=== PATIENT | female | born 1970 | race Caucasian/White ===

== ENCOUNTER 2018-05-27 13:39 | Inpatient (IN) | payer OTHER, SELFPAY ==
--- NOTE | 2018-05-27 | DI.MRI.S_ITS ---
PROCEDURE: MR LUMBAR SPINE WO/W CON INDICATIONS: ataxia, T8 sensory loss, UE weakness, r/o transverse myeliti TECHNIQUE: Noncontrast sagittal T1 spin echo and T2 fast spin echo, sagittal STIR, axial T1 and T2 fast spin echo through the lumbar spine. In cases with scoliosis, additional coronal T2 fast spin echo may be performed. After the administration of contrast, sagittal and axial T1 spin echo with fat saturation through the lumbar spine. COMPARISON: None. FINDINGS: Image quality: Excellent. Alignment and curvature: There is normal bony alignment. Marrow: Marrow is of normal overall signal. No acute vertebral body compression fractures. No suspicious marrow enhancement. Spinal cord: Conus medullaris terminates at the L1 level. Visualized spinal cord demonstrates normal signal, without suspicious enhancement. Paraspinous soft tissues: No paravertebral masses or abnormal enhancement. L1-L2: Normal appearance. L2-L3: Loss of disc signal. Minimal, diffuse disc bulge. No central stenosis. Mild right neural foraminal narrowing. No neural impingement. L3-L4: Loss of disc signal. Mild, diffuse disc bulge. Mild bilateral facet hypertrophy. No central stenosis. Mild bilateral neural foraminal narrowing. No neural impingement. L4-L5: Loss of disc signal. Mild, diffuse disc bulge. Mild bilateral facet hypertrophy. No central stenosis. Mild bilateral neural foraminal narrowing. No neural impingement. L5-S1: Disc has a normal appearance. Moderate bilateral facet hypertrophy. No central stenosis. No neural foraminal narrowing. No neural impingement. IMPRESSION: 1. Multilevel degenerative disc disease. 2. Multilevel facet arthropathy. 3. No central stenosis. 4. Mild right L2-L3 neural foraminal narrowing. Mild bilateral L3-L4 and L4-L5 neural foraminal narrowing. 5. No neural impingement. 6. No abnormal spinal cord signal or suspicious postcontrast enhancement. Dictated by: Luda Albert MD, PhD on 05/28/2018 at 15:43 Approved by: Luda Albert MD, PhD on 05/28/2018 at 15:48
--- NOTE | 2018-05-27 | DI.MRI.S_ITS ---
PROCEDURE: MR THORACIC SPINE WO/W CON INDICATIONS: ataxia, T8 sensory loss, UE weakness, r/o transverse myeliti TECHNIQUE: Noncontrast sagittal T1 spin echo and T2 fast spin echo, sagittal STIR, axial T1 and T2 fast spin echo through the thoracic spine. After the administration of contrast, axial and sagittal T1 spin echo with fat saturation through the thoracic spine. COMPARISON: None. FINDINGS: Image quality: Limited by patient motion. Alignment and curvature: There is normal bony alignment. Marrow: Marrow is of normal overall signal. No acute vertebral body compression fractures. Spinal cord: Visualized spinal cord is of normal signal and size, without abnormal enhancement. Paraspinous soft tissues: No paravertebral masses or abnormal enhancement. Miscellaneous: Mild multilevel degenerative changes. Central canal and foramina appear widely patent at all scanned levels. IMPRESSION: 1. Mild multilevel degenerative disc disease. 2. No central stenosis. 3. No neural foraminal narrowing. 4. No neural impingement. 5. No abnormal spinal cord signal or suspicious postcontrast enhancement. Dictated by: Luda Albert MD, PhD on 05/28/2018 at 15:40 Approved by: Luda Albert MD, PhD on 05/28/2018 at 15:42
--- NOTE | 2018-05-27 | DI.MRI.S_ITS ---
PROCEDURE: MR HEAD/BRAIN WO/W CON INDICATIONS: ataxia, T8 sensory loss, UE weakness, r/o MS TECHNIQUE: Noncontrast axial T1 spin echo, axial T2 fast spin echo, sagittal and axial FLAIR, coronal T2 fast spin echo, axial gradient echo, axial diffusion and ADC through the brain. After the administration of contrast, axial and coronal 3D VIBE or T1 spin echo with fat saturation through the brain. COMPARISON: None. FINDINGS: Image quality: Excellent. CSF Spaces: Basal cisterns are patent. No extra-axial fluid collections. Ventricles are normal in size and shape. Brain: No midline shift. No intracranial bleeds or masses. No abnormal intracranial enhancement. The brainstem appears normal. Diffusion-weighted images demonstrate no acute ischemic insults. No chronic ischemic insults. Normal intravascular flow voids are present. Skull and face: Calvarial marrow is normal in signal. Orbits appear normal. Sinuses: Circumferential mucosal thickening noted in the left mastoid sinus. An air-fluid level is identified within the left mastoid sinus. There is a small mucous retention cyst within the left ethmoid air cells. IMPRESSION: #1. No acute intracranial abnormality. #2. No intracranial MRI findings consistent with multiple sclerosis. #3. Bilateral mastoid mucosal thickening and air-fluid level, a nonspecific finding that can be seen with sinusitis. Dictated by: Jordan Stockton M.D. on 05/28/2018 at 15:07 Approved by: Jordan Stockton M.D. on 05/28/2018 at 15:22
--- NOTE | 2018-05-27 | DI.CT.S_ITS ---
PROCEDURE: CT CHEST W CON INDICATIONS: lung nodule seen on xray TECHNIQUE: After the administration of intravenous contrast, 5 mm thick sections acquired from the pulmonary apices to the posterior costophrenic angles. 7 mm thick coronal and sagittal MIP reformats were acquired. For radiation dose reduction, the following was used: automated exposure control, adjustment of mA and/or kV according to patient size. COMPARISON: [facility], , XR CHEST 2V, 05/27/2018, 15:15. FINDINGS: Image quality: Excellent. Lungs and pleura: No right superhilar nodule identified to correlate with the findings on the chest x-ray. Within the right middle lobe anteriorly, there are a few small ground glass nodular opacities compatible with a mild infectious or inflammatory process. There is also mild atelectasis or scarring within the anterior right middle lobe and left lingula. The No pleural effusions or pneumothorax. Central and peripheral airways are patent and normal in caliber. Mediastinum: Heart size is normal. No pericardial effusion. No mediastinal or hilar adenopathy by size criteria. Thoracic aorta and central pulmonary arteries are normal in size. Esophagus is normal in caliber. No hiatal hernia. Bones and chest wall: No suspicious bony lesions. There is asymmetric sclerosis along the right costal margin sternal junction of the 1st rib likely representing degeneration. This appears to correspond to the opacity on recent x-ray. No vertebral body compression fractures. No axillary or supraclavicular adenopathy by size criteria. Thyroid gland demonstrates no discrete nodules. Abdomen: Visualized upper abdominal solid organs appear normal. Upper abdominal bowel loops are normal in caliber. IMPRESSION: 1. No right upper lobe superhilar nodule identified to correlate with the finding on x-ray. Findings likely correspond to sclerosis in the right anterior 1st rib at the costochondral junction. 2. Small nonspecific ground glass nodules anteriorly in the right middle lobe likely represent a mild infectious or inflammatory process. Dictated by: Bryce Cordon M.D. on 05/27/2018 at 21:45 Approved by: Bryce Cordon M.D. on 05/27/2018 at 21:48
--- NOTE | 2018-05-27 | DI.MRI.S_ITS ---
PROCEDURE: MR CERVICAL SPINE WO/W CON INDICATIONS: ataxia, T8 sensory loss, UE weakness, r/o transverse myelitis TECHNIQUE: Noncontrast sagittal T1 spin echo and T2 fast spin echo, sagittal STIR, foraminal oblique sagittal T2 fast spin echo, axial gradient echo or T2 fast spin echo through the cervical spine. After the administration of contrast, axial and sagittal T1 spin echo with fat saturation through the cervical spine. COMPARISON: None. FINDINGS: Image quality: Excellent. Alignment and curvature: There is normal bony alignment and curvature. Marrow: Reactive endplate change is noted adjacent to the C5-C6 and C6-C7 discs. No suspicious enhancement. Spinal cord: Subtle increased T2 signal noted in the spinal cord the level of the C5-C6 and C6-C7 discs compatible with cord edema likely related to severe central stenosis at these levels. No cerebellar tonsillar herniation. No abnormal intramedullary enhancement. Paraspinous soft tissues: No paravertebral masses or suspicious enhancement. C2-3: Loss of disc signal. No central stenosis. Mild left facet hypertrophy. No neural foraminal narrowing. No neural impingement. C3-4: Loss of the signal. Minimal, diffuse disc bulge. Mild to moderate right facet hypertrophy. Mild right uncovertebral joint hypertrophy. No central stenosis. Severe right neural foraminal narrowing with flattening deformity the exiting right C4 nerve root. C4-5: Loss of disc signal. Minimal, diffuse disc bulge. No central stenosis. No neural foraminal narrowing. No neural impingement. C5-6: Loss of disc signal and height. Moderate, diffuse disc bulge. Mild bilateral facet hypertrophy. Moderate right and mild left uncovertebral joint hypertrophy. Severe central stenosis secondary to disc disease with marked flattening deformity of the cervical spinal cord. Severe right and moderate left neural foraminal narrowing with flattening deformity exiting right C6 nerve root. C6-7: Loss of disc signal and height. Moderate, diffuse disc bulge. Mild bilateral facet and uncovertebral joint hypertrophy. Severe central stenosis secondary to disc disease with marked flattening deformity of the cervical spinal cord. Moderate right and severe left neural foraminal narrowing with flattening deformity exiting left C7 nerve root. C7-T1: Normal appearance. IMPRESSION: 1. Multilevel degenerative disc disease. 2. Multilevel facet and uncovertebral joint hypertrophy. 3. Severe C5-C6 and C6-C7 central canal stenosis with marked flattening deformity of the cervical spinal cord. There is mild, focal, it increased T2 signal in the spinal cord levels of the severe stenosis compatible with cord edema. 4. Severe right C3-C4 neural foraminal narrowing. Severe right and moderate left C5-C6 neural foraminal narrowing. Moderate right and severe left C6 and C7 neural foraminal narrowing. 5. No or abnormal spinal cord postcontrast enhancement. Dictated by: Luda Albert MD, PhD on 05/28/2018 at 15:11 Approved by: Luda Albert MD, PhD on 05/28/2018 at 15:19
[2018-05-27 13:44] VITALS: BP 175/106; PULSE 86; RESP 18; TEMP 36.4; O2SAT 100; BMI 27.5
--- NOTE | 2018-05-27 15:31 | DI.RAD.S_ITS ---
PROCEDURE: XR CHEST 2V INDICATIONS: new onset weakness TECHNIQUE: 2 views of the chest were acquired. COMPARISON: None. FINDINGS: Surgical changes and devices: None. Lungs and pleura: No pleural effusions or pneumothorax. Lungs are clear. There is increased density over the right first anterior rib inferiorly, likely superimposed bone and vessel. Mediastinum: Mediastinal contours are normal. Heart size is normal. Bones and chest wall: No suspicious bony abnormalities. Soft tissues appear unremarkable. IMPRESSION: No acute cardiopulmonary abnormality. Possibility of right upper lobe lesion cannot be totally excluded and short interval follow up exam is recommended. Dictated by: Richie Mcpherson M.D. on 05/27/2018 at 15:58 Approved by: Richie Mcpherson M.D. on 05/27/2018 at 16:00
[2018-05-27 15:48] LABS: Alanine Aminotransferase 65 IU/L (9-52); Albumin 4.9 g/dL (3.5-5.0); Albumin Globulin Ratio 1.4 (1.0-2.8); Alkaline Phosphatase 111 U/L (38-126); Aspartate Aminotransferase 49 IU/L (14-36); BUN Creatinine Ratio 16.7 (6-22); Bilirubin Total 0.5 mg/dL (0.2-1.3); Blood Urea Nitrogen 15 mg/dL (7-17); Carbon Dioxide 29 mmol/L (22-32); Chloride 100 mmol/L (98-107); Estimated Glomerular Filt Rate > 60.0 mL/min (>60); Globulin 3.5 g/dL (1.7-4.1); Glucose 112 mg/dL (70-100); HEMOLYSIS 18 (0-50); Magnesium 2.3 mg/dL (1.6-2.3); Phosphorous 3.6 mg/dL (2.5-4.5); Potassium 4.3 mmol/L (3.4-5.1); Sodium 140 mmol/L (137-145); Total Protein 8.4 g/dL (6.3-8.2)
[2018-05-27 15:58] LABS: Add Manual Diff / Slide Review NO; Basophils Percent Auto 0.7 % (0-2); Eosinophils Percent Auto 0.6 % (2-4); Hemoglobin 16.7 g/dL (12.0-16.0); Lymphocytes Percent Auto 17.9 % (25-40); Mean Corpuscular HGB Conc 34.1 % (30-36); Mean Corpuscular Hemoglobin 35.2 PG (26-34); Mean Corpuscular Volume 103.1 fL (80-100); Neutrophils Absolute Auto 9300 /uL (3000-5900); Neutrophils Percent Auto 76.8 % (50-75); Platelet Count 282 X10^3/uL (150-400); Red Blood Cell Count 4.75 X10^6/uL (4.0-5.2); White Blood Cell Count 12.1 X10^3/uL (4.5-11.0)
--- NOTE | 2018-05-27 16:07 | PC.NURSE ---
High activity / exercising pt w/ history of asthma currently on steroid taper. Noticed lower extremity tingling / numbness after flu like illness in Oct. Resolved 90% per pt report. Had another viral illness 2 weeks ago causing asthma exacerbation. Developed ascending numbness w/ weakness, difficulty walking, hyper reflexes in lower extremities. A/O x 3. Denies pain. Has been compensating. Denies headache, trauma, urinary/bowel retention or incontinence.
[2018-05-27 16:34] LABS: Thyroid Stimulating Hormone 1.65 uIU/mL (0.47-4.68)
[2018-05-27 16:43] LABS: Creatine Kinase 100 U/L (30-135)
[2018-05-27 17:08] LABS: Pregnancy Test Serum,Qual Negative (Negative)
--- NOTE | 2018-05-27 18:22 | ED.NEUROSD ---
HPI - Neuro Symptoms/Deficit General Chief Complaint: Neuro Symptoms/Deficit Stated Complaint: numb from abdomen down, trouble walking History of Present Illness HPI Narrative: HPI 47-year-old female presents for evaluation of gradually progressive bilateral lower extremity weakness, gait impairment, and subjective numb paresthesias that are progressing to her upper abdomen. Patient reports that last October she had an upper respiratory infectious episodes lasting proximally 10 days with fevers and chills and generally consistent with influenza, this cleared without requiring medical intervention, but the patient had mild numbness of her bilateral lower extremities which gradually had near complete resolution and only mild residual abnormal numb sensation in the first 2-4 toes of her left foot. Roughly 7-10 days ago she had another viral URI type infection, following the onset of this infection she began experiencing her presenting symptoms. The patient was also seen by her PCP and prescribed steroids in the course of her treatment. M/S/F/SocHx notable for: please see HPI; remainder reviewed with patient and in chart. ROS: Negative constitutional, eye, cardiovascular, pulmonary, GI, , MSK, skin, neurologic, psychiatric, endocrine unless noted in the HPI. Exam Gen: Pleasant, non-toxic appearing, resting comfortably. HEENT: NC, AT, PEERL, EOMI. Resp: Clear to auscultation bilaterally, normal work of breathing, no accessory muscle usage. Card: Regular rate and rhythm with no murmurs, rubs, or gallops, extremities warm and well perfused. GI: nondistended, nontender. : No suprapubic tenderness to palpation. MSK: No visible deformities, strength and tone without visually appreciable deficit. Bilateral lower extremities visually normal, warm and well perfused, no palpable abnormalities, 2+ DP pulses bilaterally. Skin: Normal color with no visible lesions. Neuro: AO x 3, no facial asymmetry, vision and hearing WNL. * Gait - patient with unsteady, broad-based, mildly staggering but non-ataxic gait. Able to stand on heels and toes with near full strength bilaterally. * reflexes - markedly hyperreflexia patellar reflexes bilaterally. * Romberg - patient able to stand with with both feet together and eyes closed with minimal swaying. * Sensory - sensation grossly intact to touch and symmetric on the bilateral lower extremities. Psych: Mood and affect appropriate. Labs / Imaging: WBC 12.1, HB 16.7, sodium 140, potassium 4.3, AST 49, ALT 65, free T4 1.40, magnesium 2.3, phosphorus 3.6, TSH 1.65, CK 100 CXR: no acute cardiopulmonary abnormality. Possibility of a right upper lobe lesion cannot be totally excluded in short interval follow-up exam is recommended. MDM Previous chart, nursing note, labs, imaging, and vitals reviewed. A: 47-year-old female presents for evaluation of gradually progressive bilateral lower extremity weakness, gait impairment, and subjective numb paresthesias that are progressing to her upper abdomen. DDx: electrolyte abnormalities, thyroid abnormalities, myositis, Guillain-Kuhn? syndrome, transverse myelitis, tick paralysis, polymyositis, dermatomyositis, ALS, multiple sclerosis Evaluation: initial laboratory studies unremarkable. Consider most likely on the differential is transverse myelitis and MS. Discussed case with the neurologist, MRI with contrast of Braen, C, and thoracic spine recommended as well as the addition of B12. These were ordered. Patient knitted for observation pending completion of evaluation in the morning. Impression: weakness (please reference below for remainder of encounter information) On Anticoagulants: No Related Data Home Medications Medication Instructions Recorded Confirmed albuterol sulfate [Ventolin HFA] 1 puff INH Q4HP PRN 05/27/18 05/27/18 azithromycin 250 mg PO DAILY 05/27/18 05/27/18 Previous Rx's Medication Instructions Recorded prednisone 20 mg PO SEE INSTRUCTIONS #6 tab 03/19/17 albuterol sulfate 3 ml INH X1 #1 box 03/22/17 beclomethasone dipropionate [Qvar] 1 puff INH BID #1 inh 03/27/17 Allergies Allergy/AdvReac Type Severity Reaction Status Date / Time codeine [CODEINE] Allergy Intermediate night Verified 05/27/18 13:48 terrors [facility] Social History Smoking Status: Former smoker Exam Initial Vital Signs Initial Vital Signs: Vital Signs Temperature 97.6 F 05/27/18 13:44 Pulse Rate 86 05/27/18 13:44 Respiratory Rate 18 05/27/18 13:44 Blood Pressure 175/106 H 05/27/18 13:44 Pulse Oximetry 100 05/27/18 13:44 Course Orders Ordered: ED Orders 05/27/18 15:20 Complete Blood Count AUTO DIFF Stat Comprehensive Metabolic Panel Stat Free T4 Free Thyroxine Stat Magnesium Stat Phosphorous Stat Thyroid Stimulating Hormone Stat 05/27/18 15:31 XR chest 2V Stat 05/27/18 18:14 MR brain (IAC) wwo con Stat MR cervical spine w con Stat MR lumbar spine w con Stat MR thoracic spine w con Stat 05/27/18 18:19 Vitamin B12 Stat Vital Signs - 8 hr 05/27/18 13:44 Temperature 97.6 F Pulse Rate 86 Respiratory Rate 18 Blood Pressure 175/106 H Pulse Oximetry 100 MDM - Neuro Symptoms/Deficit Lab Data Result diagrams: 05/27/18 15:20 05/27/18 15:20 Lab Results 05/27/18 05/27/18 05/27/18 Range/Units 15:20 15:20 15:20 WBC 12.1 H (4.5-11.0) X10^3/uL RBC 4.75 (4.0-5.2) X10^6/uL Hgb 16.7 H (12.0-16.0) g/dL Hct 49.0 H (36-46) % MCV 103.1 H (80-100) fL MCH 35.2 H (26-34) PG MCHC 34.1 (30-36) % RDW 13.0 (11.6-14.8) % Plt Count 282 (150-400) X10^3/uL Neut % (Auto) 76.8 H (50-75) % Lymph % (Auto) 17.9 L (25-40) % Kenton % (Auto) 4.0 (3-14) % Eos % (Auto) 0.6 L (2-4) % Baso % (Auto) 0.7 (0-2) % Neut # (Auto) 9300 H (0414-3617) /uL Sodium (137-145) mmol/L Potassium (3.4-5.1) mmol/L Chloride (98-107) mmol/L Carbon Dioxide (22-32) mmol/L BUN (7-17) mg/dL Creatinine (0.52-1.04) mg/dL Estimated GFR (>60) mL/min BUN/Creatinine Ratio (6-22) Glucose (70-100) mg/dL Calcium (8.4-10.2) mg/dL Phosphorus Cancelled Magnesium (1.6-2.3) mg/dL Total Bilirubin (0.2-1.3) mg/dL AST (14-36) IU/L ALT (9-52) IU/L Alkaline Phosphatase (38-126) U/L Total Creatine Kinase (30-135) U/L Total Protein (6.3-8.2) g/dL Albumin (3.5-5.0) g/dL Globulin (1.7-4.1) g/dL Albumin/Globulin Ratio (1.0-2.8) TSH 1.65 (0.47-4.68) uIU/mL Free T4 1.40 (0.78-2.19) ng/dL Serum , Qual (Negative) 05/27/18 05/27/18 05/27/18 Range/Units 15:20 Unknown Unknown WBC (4.5-11.0) X10^3/uL RBC (4.0-5.2) X10^6/uL Hgb (12.0-16.0) g/dL Hct (36-46) % MCV (80-100) fL MCH (26-34) PG MCHC (30-36) % RDW (11.6-14.8) % Plt Count (150-400) X10^3/uL Neut % (Auto) (50-75) % Lymph % (Auto) (25-40) % Kenton % (Auto) (3-14) % Eos % (Auto) (2-4) % Baso % (Auto) (0-2) % Neut # (Auto) (4808-8830) /uL Sodium 140 (137-145) mmol/L Potassium 4.3 (3.4-5.1) mmol/L Chloride 100 (98-107) mmol/L Carbon Dioxide 29 (22-32) mmol/L BUN 15 (7-17) mg/dL Creatinine 0.90 (0.52-1.04) mg/dL Estimated GFR > 60.0 (>60) mL/min BUN/Creatinine Ratio 16.7 (6-22) Glucose 112 H (70-100) mg/dL Calcium 10.0 (8.4-10.2) mg/dL Phosphorus 3.6 Magnesium 2.3 (1.6-2.3) mg/dL Total Bilirubin 0.5 (0.2-1.3) mg/dL AST 49 H (14-36) IU/L ALT 65 H (9-52) IU/L Alkaline Phosphatase 111 (38-126) U/L Total Creatine Kinase 100 (30-135) U/L Total Protein 8.4 H (6.3-8.2) g/dL Albumin 4.9 (3.5-5.0) g/dL Globulin 3.5 (1.7-4.1) g/dL Albumin/Globulin Ratio 1.4 (1.0-2.8) TSH (0.47-4.68) uIU/mL Free T4 (0.78-2.19) ng/dL Serum , Qual Negative (Negative) Discharge Plan Departure Prescriptions: No Action prednisone 20 MG tablet 20 mg PO SEE INSTRUCTIONS Qty: 6 RF: 0 albuterol sulfate 2.5 MG/3 ML solution for nebulization 3 ml INH X1 Qty: 1 RF: 3 beclomethasone dipropionate [Qvar] 80 MCG/PUFF aerosol 1 puff INH BID Qty: 1 RF: 2 azithromycin 250 mg Tablet 250 mg PO DAILY RF: 0 albuterol sulfate [Ventolin HFA] 90 MCG/PUFF HFA aerosol inhaler 1 puff INH Q4HP PRN (Reason: Shortness Of Breath) RF: 0
[2018-05-27 19:50] VITALS: BP 157/99; PULSE 79; RESP 20; TEMP 37.1; O2SAT 98
--- NOTE | 2018-05-27 20:00 | PM.HP.1 ---
History of Present Illness Date Patient Seen: 05/27/18 Time Patient Seen: 20:01 Chief complaint: numb from abdomen down, trouble walking Narrative: Patient is a 47-year-old female with history of asthma but generally good health presents to emergency department with complaints of numbness from the abdomen down and trouble walking. Patient states she developed an upper respiratory infection about 2 weeks ago. She saw her medical provider and got started on prednisone and Z-Flex. Her cough is improving. However around time of onset of respiratory symptoms she developed difficulty walking and symmetric numbness in the legs extending to the upper abdomen. At about same time or soon after she noticed weakness in both arms but without numbness. She thinks that maybe her left eye vision also deteriorated but not completely sure about the vision change. She denies headache, diplopia, facial numbness. She denies falling. Denies any urinary symptoms such as urgency, difficulty emptying bladder or incontinence or any problems with constipation. 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 She also saw chiropractor recently for acute pain in the thoracic spine area. She states that pain has gotten much better. Patient recalls incident last year during when she had the flu and subsequently lost sensation in all 4 extremities. Symptoms resolved on their own except for persistent numbness in the left big toe and 2nd toe which did not resolve. Patient History Medical History Asthma (Chronic) Family & Social History Safety & Behavioral: Feels Safe in Current Yes Environment Been Physically Hurt or No Threatened By a Person Tobacco & Substance use: Smoking Status Former smoker alcohol intake frequency 0-2 drinks per day Substance Use Type marijuana Meds Home Medications Medication Instructions Recorded Confirmed Type prednisone 20 mg PO SEE INSTRUCTIONS #6 tab 03/19/17 05/27/18 Rx albuterol sulfate 3 ml INH X1 #1 box 03/22/17 05/27/18 Rx beclomethasone dipropionate [Qvar] 1 puff INH BID #1 inh 03/27/17 05/27/18 Rx albuterol sulfate [Ventolin HFA] 1 puff INH Q4HP PRN 05/27/18 05/27/18 History azithromycin 250 mg PO DAILY 05/27/18 05/27/18 History Allergies Allergy/AdvReac Type Severity Reaction Status Date / Time codeine [CODEINE] Allergy Intermediate night Verified 05/27/18 13:48 terrors Review of Systems Review of Systems All systems reviewed & are unremarkable except as noted in HPI and below Exam Vital Signs (past 8 hours): - 05/27/18 13:44 Temperature 97.6 F Pulse Rate 86 Respiratory Rate 18 Blood Pressure 175/106 H Pulse Oximetry 100 Oxygen Delivery Method Room Air Narrative Exam Narrative: GENERAL: This is an alert well-nourished, well-developed patient, who is cooperative with exam HEAD: Atraumatic. Normocephalic. EYES: Pupils equal, round and reactive. Extraocular motions intact. No nystagmus. OROPHARYNX: moist mucosa NECK: Trachea midline. No JVD or lymphadenopathy. CARDIOVASCULAR: Regular rate and rhythm without murmurs, gallops, or rubs. RESPIRATORY: Breathing is nonlabored. Clear to auscultation bilaterally. GASTROINTESTINAL: Abdomen nondistended, soft, non-tender. No hepato-splenomegaly, or palpable masses. EXTREMITIES: No edema. NEUROLOGICAL: Alert, oriented x 3, speech is intact, there is bilateral symmetric sensory loss to T8 level, deep tendon reflexes are hyper reflexive in arms, knees and ankles. Upper extremity proximal and distal strength intact although patient has subjective weakness and states she would not be able to hold a bowling ball. Bilateral lower extremity strength 5/5 although patient is ataxic with ambulation. SKIN: warm, dry, no rash Objective Labs Result Diagrams: 05/27/18 15:20 05/27/18 15:20 Labs: Chest two view:PROCEDURE: XR CHEST 2V INDICATIONS: new onset weakness TECHNIQUE: 2 views of the chest were acquired. COMPARISON: None. FINDINGS: Surgical changes and devices: None. Lungs and pleura: No pleural effusions or pneumothorax. Lungs are clear. There is increased density over the right first anterior rib inferiorly, likely superimposed bone and vessel. Mediastinum: Mediastinal contours are normal. Heart size is normal. Bones and chest wall: No suspicious bony abnormalities. Soft tissues appear unremarkable. IMPRESSION: No acute cardiopulmonary abnormality. Possibility of right upper lobe lesion cannot be totally excluded and short interval follow up exam is recommended. Dictated by: Richie Mcpherson M.D. on 05/27/2018 at 15:58 Approved by: Richie Mcpherson M.D. on 05/27/2018 at 16:00 Laboratory Results - last 24 hr 05/27/18 05/27/1805/27/18 15:20 15:20 15:20 WBC 12.1 H RBC 4.75 Hgb 16.7 H Hct 49.0 H MCV 103.1 H MCH 35.2 H MCHC 34.1 RDW 13.0 Plt Count 282 Neut % (Auto) 76.8 H Lymph % (Auto) 17.9 L [place] % (Auto) 4.0 Eos % (Auto) 0.6 L Baso % (Auto) 0.7 Neut # (Auto) 9300 H Sodium Potassium Chloride Carbon Dioxide BUN Creatinine Estimated GFR BUN/Creatinine Ratio Glucose Calcium Phosphorus Cancelled Magnesium Total Bilirubin AST ALT Alkaline Phosphatase Total Creatine Kinase Total Protein Albumin Globulin Albumin/Globulin Ratio TSH 1.65 Free T4 1.40 Serum , Qual 05/27/18 05/27/18 05/27/18 15:20 Unknown Unknown WBC RBC Hgb Hct MCV MCH MCHC RDW Plt Count Neut % (Auto) Lymph % (Auto) [place] % (Auto) Eos % (Auto) Baso % (Auto) Neut # (Auto) Sodium 140 Potassium 4.3 Chloride 100 Carbon Dioxide 29 BUN 15 Creatinine 0.90 Estimated GFR > 60.0 BUN/Creatinine Ratio 16.7 Glucose 112 H Calcium 10.0 Phosphorus 3.6 Magnesium 2.3 Total Bilirubin 0.5 AST 49 H ALT 65 H Alkaline Phosphatase 111 Total Creatine Kinase 100 Total Protein 8.4 H Albumin 4.9 Globulin 3.5 Albumin/Globulin Ratio 1.4 TSH Free T4 Serum , Qual Negative Assessment & Plan Plan: Assessment/Plan Narrative: 1. Acute ataxia with T8 sensory loss and subjective weakness of upper extremities. Symptom onset was 2 weeks ago after onset of URI. She is hyper-reflexive on exam with ataxic gait. She had similar symptoms around [place] last year which were largely resolved on their own. 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 She has ascending pattern of numbness although hyper reflexia would argue against Guillain-[place] syndrome. She is not having fevers to suggest infectious causes. Mildly elevated WBC more likely due to prednisone. She needs MRI imaging which unfortunately could not be done tonight due to lack of sprinkler repair technician availability. We have scheduled MRI for a.m.. Plan: Brain MRI with and without contrast, C-spine/thoracic/lumbar MRI with and without contrast. 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 2. Possible abnormal density right upper lung. Could be artifact. Order chest CT with contrast for further evaluation. 3. URI with recent asthma exacerbation. Lungs are clear on exam. Complete Zithromax 5 day course on a.m. of May 28. 4. Acute hypertension. Noted to have initial BP 175/106 subsequently improving. Continue monitoring.
[2018-05-27 20:07] LABS: Vitamin B12 935 pg/mL (239-931)
[2018-05-27 20:15] VITALS: BMI 27.1
--- NOTE | 2018-05-27 20:23 | P.HP_ITS ---
History of Present Illness Date Patient Seen: 05/27/18 Time Patient Seen: 20:01 Chief complaint: numb from abdomen down, trouble walking Narrative: Patient is a 47-year-old female with history of asthma but generally good health presents to emergency department with complaints of numbness from the abdomen down and trouble walking. Patient states she developed an upper respiratory infection about 2 weeks ago. She saw her medical provider and got started on prednisone and Z-Flex. Her cough is improving. However around time of onset of respiratory symptoms she developed difficulty walking and symmetric numbness in the legs extending to the upper abdomen. At about same time or soon after she noticed weakness in both arms but without numbness. She thinks that maybe her left eye vision also deteriorated but not completely sure about the vision change. She denies headache, diplopia, facial numbness. She denies falling. Denies any urinary symptoms such as urgency, difficulty emptying bladder or incontinence or any problems with constipation. 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 She also saw chiropractor recently for acute pain in the thoracic spine area. She states that pain has gotten much better. Patient recalls incident last year during when she had the flu and subsequently lost sensation in all 4 extremities. Symptoms resolved on their own except for persistent numbness in the left big toe and 2nd toe which did not resolve. Patient History Medical History Asthma (Chronic) Family & Social History Safety & Behavioral: Feels Safe in Current Yes Environment Been Physically Hurt or No Threatened By a Person Tobacco & Substance use: Smoking Status Former smoker alcohol intake frequency 0-2 drinks per day Substance Use Type marijuana Meds Home Medications Medication Instructions Recorded Confirmed Type prednisone 20 mg PO SEE INSTRUCTIONS #6 tab 03/19/17 05/27/18 Rx albuterol sulfate 3 ml INH X1 #1 box 03/22/17 05/27/18 Rx beclomethasone dipropionate [Qvar] 1 puff INH BID #1 inh 03/27/17 05/27/18 Rx albuterol sulfate [Ventolin HFA] 1 puff INH Q4HP PRN 05/27/18 05/27/18 History azithromycin 250 mg PO DAILY 05/27/18 05/27/18 History Allergies Allergy/AdvReac Type Severity Reaction Status Date / Time codeine [CODEINE] Allergy Intermediate night Verified 05/27/18 13:48 terrors Review of Systems Review of Systems All systems reviewed & are unremarkable except as noted in HPI and below Exam Vital Signs (past 8 hours): - 05/27/18 13:44 Temperature 97.6 F Pulse Rate 86 Respiratory Rate 18 Blood Pressure 175/106 H Pulse Oximetry 100 Oxygen Delivery Method Room Air Narrative Exam Narrative: GENERAL: This is an alert well-nourished, well-developed patient , who is cooperative with exam HEAD: Atraumatic. Normocephalic. EYES: Pupils equal, round and reactive. Extraocular motions intact. No nystagmus. OROPHARYNX: moist mucosa NECK: Trachea midline. No JVD or lymphadenopathy. CARDIOVASCULAR: Regular rate and rhythm without murmurs, gallops, or rubs. RESPIRATORY: Breathing is nonlabored. Clear to auscultation bilaterally. GASTROINTESTINAL: Abdomen nondistended, soft, non-tender. No hepato- splenomegaly, or palpable masses. EXTREMITIES: No edema. NEUROLOGICAL: Alert, oriented x 3, speech is intact, there is bilateral symmetric sensory loss to T8 level, deep tendon reflexes are hyper reflexive in arms, knees and ankles. Upper extremity proximal and distal strength intact although patient has subjective weakness and states she would not be able to hold a bowling ball. Bilateral lower extremity strength 5/5 although patient is ataxic with ambulation. SKIN: warm, dry, no rash Objective Labs Result Diagrams: 05/27/18 15:20 05/27/18 15:20 Labs: Chest two view:PROCEDURE: XR CHEST 2V INDICATIONS: new onset weakness TECHNIQUE: 2 views of the chest were acquired. COMPARISON: None. FINDINGS: Surgical changes and devices: None. Lungs and pleura: No pleural effusions or pneumothorax. Lungs are clear. There is increased density over the right first anterior rib inferiorly, likely superimposed bone and vessel. Mediastinum: Mediastinal contours are normal. Heart size is normal. Bones and chest wall: No suspicious bony abnormalities. Soft tissues appear unremarkable. IMPRESSION: No acute cardiopulmonary abnormality. Possibility of right upper lobe lesion cannot be totally excluded and short interval follow up exam is recommended. Dictated by: Richie Mcpherson M.D. on 05/27/2018 at 15:58 Approved by: Richie Mcpherson M.D. on 05/27/2018 at 16:00 Laboratory Results - last 24 hr 05/27/18 05/27/1805/27/18 15:20 15:20 15:20 WBC 12.1 H RBC 4.75 Hgb 16.7 H Hct 49.0 H MCV 103.1 H MCH 35.2 H MCHC 34.1 RDW 13.0 Plt Count 282 Neut % (Auto) 76.8 H Lymph % (Auto) 17.9 L [place] % (Auto) 4.0 Eos % (Auto) 0.6 L Baso % (Auto) 0.7 Neut # (Auto) 9300 H Sodium Potassium Chloride Carbon Dioxide BUN Creatinine Estimated GFR BUN/Creatinine Ratio Glucose Calcium Phosphorus Cancelled Magnesium Total Bilirubin AST ALT Alkaline Phosphatase Total Creatine Kinase Total Protein Albumin Globulin Albumin/Globulin Ratio TSH 1.65 Free T4 1.40 Serum , Qual 05/27/18 05/27/18 05/27/18 15:20 Unknown Unknown WBC RBC Hgb Hct MCV MCH MCHC RDW Plt Count Neut % (Auto) Lymph % (Auto) [place] % (Auto) Eos % (Auto) Baso % (Auto) Neut # (Auto) Sodium 140 Potassium 4.3 Chloride 100 Carbon Dioxide 29 BUN 15 Creatinine 0.90 Estimated GFR > 60.0 BUN/Creatinine Ratio 16.7 Glucose 112 H Calcium 10.0 Phosphorus 3.6 Magnesium 2.3 Total Bilirubin 0.5 AST 49 H ALT 65 H Alkaline Phosphatase 111 Total Creatine Kinase 100 Total Protein 8.4 H Albumin 4.9 Globulin 3.5 Albumin/Globulin Ratio 1.4 TSH Free T4 Serum , Qual Negative Assessment & Plan Plan: Assessment/Plan Narrative: 1. Acute ataxia with T8 sensory loss and subjective weakness of upper extremities. Symptom onset was 2 weeks ago after onset of URI. She is hyper- reflexive on exam with ataxic gait. She had similar symptoms around [place] last year which were largely resolved on their own. Differential diagnosis includes DOORPERSON OR LUGGAGE PORTER or spinal cord autoimmune process such as multiple sclerosis or transverse myelitis, spinal cord compression due to tumor, vascular abnormality causes, and degenerative disease such as cervical myelopathy. She has ascending pattern of numbness although hyper reflexia would argue against Guillain-[place] syndrome. She is not having fevers to suggest infectious causes. Mildly elevated WBC more likely due to prednisone. She needs MRI imaging which unfortunately could not be done tonight due to lack of lube technician availability. We have scheduled MRI for a.m.. Plan: Brain MRI with and without contrast, C-spine/thoracic/lumbar MRI with and without contrast. Patient is claustrophobic and will get lorazepam dental professional to MR. 2. Possible abnormal density right upper lung. Could be artifact. Order chest CT with contrast for further evaluation. 3. URI with recent asthma exacerbation. Lungs are clear on exam. Complete Zithromax 5 day course on a.m. of May 28. 4. Acute hypertension. Noted to have initial BP 175/106 subsequently improving. Continue monitoring.
--- NOTE | 2018-05-27 21:37 | PC.NURSE ---
patient is a&ox4, denies pain, 98% on ra, denies nausea or dizziness. patient states she feels sob. patient demonstrates ability to ambulate from wheelchair to bed. patient denies need to void at this time, will reassess. patient oriented to room and call light use, encouraged not to get oob by herself. skin is intact. bowel tones present, heart rate regular. lung sounds are wheezy bilat, especially in bases, cough is productive with white frothy sputum. patient neuro assessed by this rn: sensation is stated to feel like they are someone else's legs, like she can feel this rn poking feet, legs, hips, abd and back, but sensation has decreased. no paresthesia, no paralysis, can wiggle toes. will continue to monitor.
[2018-05-27 21:42] VITALS: O2SAT 98
[2018-05-27 23:00] VITALS: O2SAT 99
[2018-05-28 00:11] VITALS: BP 147/94; PULSE 66; RESP 16; TEMP 36.7; O2SAT 99
[2018-05-28] MEDS: CYCLOBENZAPRINE 10 MG TABLET PO (01:13)
[2018-05-28 05:31] VITALS: BP 133/90; PULSE 70; RESP 16; TEMP 36.6; O2SAT 98
[2018-05-28] MEDS: IBUPROFEN 400 MG TABLET PO (06:47)
--- NOTE | 2018-05-28 06:48 | PC.NURSE ---
Pt is AxOx3 very pleasant 47yr old female. Complained of some muscle spasms keeping her up, flexeril ordered and given. Sharp pain also reported in upper back when coughing, Ibuprofen given. 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 Reports some numnbess on b/l lower extremities and up to her epigastric area.When further asked to explain she said she can feel when we touch her legs but it feels weird and she can feel the pressure but it feels more dull.
[2018-05-28 07:00] VITALS: O2SAT 98
[2018-05-28 08:00] VITALS: BP 128/92; PULSE 74; RESP 18; TEMP 36.6; O2SAT 98
[2018-05-28] MEDS: ACETAMINOPHEN 325 MG TABLET 650 MG PO (08:44)
[2018-05-28] MEDS: AZITHROMYCIN 250 MG TABLET PO (08:44)
--- NOTE | 2018-05-28 09:09 | CM.DANOTE ---
DCP: Case received, EMR reviewed and met with patient. Introduced self and role. DCP template completed with information currently available. Patient is a 47 year old female who admitted yesterday pm to the care of the hospitalist team. PCP: Dr. Marshall. Payer: confirmed: Deepika. Patient came in with symptoms of numbness from the abdomen down, as well as trouble walking. Had been treated recently for URI, and patient started developing these symptoms after that. Patient lives on [facility] with her . Is inpatient status at this time. DCP will continue to plan and assess, plan is for patient to go home if possible. Mildred Martinez RN/Car Icer
[2018-05-28] MEDS: LORazepam 2 MG/ML SYRINGE 1 MG IV (10:26)
--- NOTE | 2018-05-28 11:28 | PC.NURSE ---
Pt just down to MRI. Given Ativan prior to test. Friend in room.
[2018-05-28 12:00] VITALS: O2SAT 98
[2018-05-28] MEDS: predniSONE 10 MG TABLET PO (13:03)
--- NOTE | 2018-05-28 17:01 | PM.DS.1 ---
History of Present Illness Chief complaint: numb from abdomen down, trouble walking Narrative: Patient is a 47-year-old female with history of asthma but generally good health presents to emergency department with complaints of numbness from the abdomen down and trouble walking. Patient states she developed an upper respiratory infection about 2 weeks ago. She saw her medical provider and got started on prednisone and Z-Flex. Her cough is improving. However around time of onset of respiratory symptoms she developed difficulty walking and symmetric numbness in the legs extending to the upper abdomen. At about same time or soon after she noticed weakness in both arms but without numbness. She thinks that maybe her left eye vision also deteriorated but not completely sure about the vision change. She denies headache, diplopia, facial numbness. She denies falling. Denies any urinary symptoms such as urgency, difficulty emptying bladder or incontinence or any problems with constipation. 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 She also saw chiropractor recently for acute pain in the thoracic spine area. She states that pain has gotten much better. Patient recalls incident last year during when she had the flu and subsequently lost sensation in all 4 extremities. Symptoms resolved on their own except for persistent numbness in the left big toe and 2nd toe which did not resolve. Discharge Providers Date of admission: 05/27/18 19:05 Primary care physician: Dr. Jonathan MD Discharge provider: Danyell Lawler MD Discharge Date: 05/28/18 Summary Discharge Diagnosis: 1. Cervical spine spinal stenosis 2. Possible abnormal density in the right upper lung, could be artifact 3. Recent URI with asthma exacerbation 4. Acute hypertension Hospital Course: Patient was treated supportively. Cervical spine MRI revealed severe spinal stenosis at C5-6 and C6-7 with marked flattening deformity of the cervical spinal cord. There is signs of cord edema. There was also signs of neural foraminal stenosis at several levels. Brain MRI did not reveal any intracranial lesions that could be causing her symptoms. T-spine and L-spine MRI also did not reveal any significant abnormalities. She has been having chronic neck pain for quite a while. Her symptom could be from cervical spine spinal stenosis. She is currently on oral prednisone taper for asthma exacerbation. We are going to increase her prednisone dose to 40 mg daily. She needs outpatient neurosurgery consultation for for possible surgical intervention in the near future. I have recommended Dr. Molina in [place]. Status at Discharge Cognitive/behavioral status at discharge: Alert and oriented x3 Functional status at discharge: independent ambulation Overall status at discharge: patient is not back to baseline Time Spent with Patient Greater than 30 minutes Exam Vital Signs (past 8 hours): - 05/28/18 12:00 Pulse Oximetry 98 Oxygen Delivery Method Room Air Oxygen Flow Rate 0 Objective Imaging C-spine MRI: Radiologist's impression: 1. Multilevel degenerative disc disease. 2. Multilevel facet and uncovertebral joint hypertrophy. 3. Severe C5-C6 and C6-C7 central canal stenosis with marked flattening deformity of the cervical spinal cord. There is mild, focal, it increased T2 signal in the spinal cord levels of the severe stenosis compatible with cord edema. 4. Severe right C3-C4 neural foraminal narrowing. Severe right and moderate left C5-C6 neural foraminal narrowing. Moderate right and severe left C6 and C7 neural foraminal narrowing. 5. No or abnormal spinal cord postcontrast enhancement Labs Result Diagrams: 05/27/18 15:20 05/27/18 15:20 Labs: Laboratory Results - last 24 hr 05/27/18 05/27/18 16:00 Unknown Vitamin B12 935 H Serum , Qual Negative Discharge Plan Discharge Plan Discharge Problem: Abnormal gait Patient Disposition: Home, Self-Care Discharge comment: Follow-up with Neurosurgery as outpatient Provider Discharge Instructions Diet: Diet as Tolerated Discharge Data Primary Care Provider: Mayi Singleton Attending Provider: Tim Green Admit Date/Time: 05/27/18 19:05 Quality VTE Deep Vein Thrombosis/Pulmonary Embolism Present on Admission: No
--- NOTE | 2018-05-28 17:52 | PC.NURSE ---
1750- Pt IV discharge completed. A/O x4, LS clear, steady gait, able to ambulate indep. VSS, denies nausea, SOB, and pain. Pt has best friend here to accommodate back to [place].
== END 2018-05-28 17:49 | disposition home or self-care (01) | DRG 551 ==
LOC: ED 18:55 → AC 05-28 07:26
PROVIDERS: Admitting Provider Internal Medicine; Emergency Provider Emergency Medicine; PCP Family Medicine; Visit Provider Internal Medicine
DX: M48.02 Spinal stenosis, cervical region (principal); G95.19 Other vascular myelopathies; J45.901 Unspecified asthma with (acute) exacerbation; R27.8 Other lack of coordination; R20.8 Other disturbances of skin sensation; I10 Essential (primary) hypertension; Z87.891 Personal history of nicotine dependence; R91.8 Other nonspecific abnormal finding of lung field
CPT/HCPCS: 36591; 70553; 71046; 71260; 72156; 72157; 72158; 80053; 82550; 82607; 83735; 84100; 84439; 84443; 84703; 85025; 99282; 99285; 99291; A9579; J2060; Q9967

== ENCOUNTER 2019-08-19 21:24 | Emergency (ER) | payer OTHER, SELFPAY ==
[2019-08-19 21:44] VITALS: BP 162/101; PULSE 88; RESP 14; TEMP 36.8; O2SAT 99
--- NOTE | 2019-08-19 22:36 | ED.BACK ---
HPI - Back Pain/Injury General Chief Complaint: Back Pain/Injury Stated Complaint: BACK PAIN Time Seen by Provider: 08/19/19 22:30 Source: patient Limitations: no limitations History of Present Illness HPI Narrative: The patient is a 48-year-old female who presents with left-sided thoracic pain. It has been off and on for about a week. She says that she just got back from vacation she has had cough upper respiratory like symptoms and then 5 days ago she was exercising in march have overdone it. Tonight she twisted and it seemed to got worse. It is pinpoint in 1 area does hurt when she breathes coughs or sneezes. She denies any falling. She works in a [employer] all day. She took pain medication and muscle relaxant prior to arrival she says that has helped some. Complaint: back pain Onset (ago): day(s) (5) Duration: constant Location: thoracic spine Severity: mild Related Data Home Medications Medication Instructions Recorded Confirmed albuterol sulfate [Ventolin HFA] 1 puff INH Q4HP PRN 05/27/18 05/27/18 azithromycin 250 mg PO DAILY 05/27/18 05/27/18 Previous Rx's Medication Instructions Recorded albuterol sulfate 3 ml INH X1 #1 box 03/22/17 beclomethasone dipropionate [Qvar] 1 puff INH BID #1 inh 03/27/17 prednisone 20 mg PO BID #30 tab 05/28/18 cyclobenzaprine 5 mg PO TID PRN #10 tab 08/19/19 Allergies Allergy/AdvReac Type Severity Reaction Status Date / Time codeine [CODEINE] Allergy Intermediate night Verified 08/19/19 21:47 terrors Review of Systems Review of Systems Narrative: GENERAL: Denies chills,fever HEENT: Denies throat pain RESPIRATORY: Denies dyspnea, cough, wheezing CARDIOVASCULAR: Denies chest pain, palpitations GASTROINTESTINAL: Denies nausea, vomiting MUSCULOSKELETAL: See HPI SKIN: No rash, no laceration, no pruritus NEUROLOGIC: Denies weakness, dizziness, headache, numbness 8 point review of systems is negative except for those stated above and HPI Patient History Medical History Asthma (Chronic) Social History household members: spouse Smoking Status: Former smoker Social History household members: spouse Smoking Status: Former smoker alcohol intake frequency: 0-2 drinks per day Alcohol type: wine Substance Use Type: marijuana Exam Initial Vital Signs Initial Vital Signs: Vital Signs Temperature 98.2 F 08/19/19 21:44 Pulse Rate 88 08/19/19 21:44 Respiratory Rate 14 08/19/19 21:44 Blood Pressure 162/101 H 08/19/19 21:44 Pulse Oximetry 99 08/19/19 21:44 GENERAL: Well-appearing, well-nourished and in no acute distress. HEENT: Head atraumatic,EOMI, pupils reactive, face symmetric, moist mucous membranes CARDIOVASCULAR: Regular rate and rhythm without murmurs, rubs or gallops. RESPIRATORY: Breath sounds equal bilaterally, no wheezes rales or rhonchi. Tender left lateral rib number 9 or 10 pinpoint pain reproducible with palpation. No respiratory distress EXTREMITIES: Normal range of motion, no clubbing or edema. Neurovascularly intact NEUROLOGICAL: Alert and oriented x4.Normal gait and speech. SKIN: Warm, dry, no laceration, no petechiae, no rashes or lesions. Course Orders Ordered: ED Orders 08/19/19 22:43 XR ribs RT min 3V w CXR1V Stat Discontinued Medications Cyclobenzaprine HCl (Flexeril 10 Mg Prepack) 1 bottle MISC SEEINSTR ONE Stop: 08/19/19 23:29 Last Admin: 08/19/19 23:42 Dose: 1 bottle Documented by: [email or web address] Ketorolac Tromethamine (Toradol) 30 mg IM NOW ONE Stop: 08/19/19 22:44 Last Admin: 08/19/19 22:51 Dose: 30 mg Documented by: BENI Vital Signs Vital signs: Vital Signs - 8 hr 08/19/19 21:44 08/19/19 23:44 Temperature 98.2 F Pulse Rate 88 74 Respiratory Rate 14 14 Blood Pressure 162/101 H Blood Pressure [Left Arm] 153/90 H Pulse Oximetry 99 99 MDM - Back Pain/Injury Imaging Data rib and chest left: Attestation: I personally reviewed and interpreted this imaging study as follows: My impression: No acute fracture MDM Narrative Medical decision making narrative: Patient's symptoms are consistent with costochondritis. She has no pneumo or fracture noted. She got a dose of Toradol in ED overall feeling well bit better requesting a muscle relaxer. Discharge Plan Departure Patient Disposition: Home Clinical Impression: Acute costochondritis, Asthma Discharge Date/Time: 08/19/19 23:45 Instructions: Costochondritis Activity Restrictions/Additional Instructions: *You have been diagnosed with costochondritis *What to do: X-ray is negative. This is likely strained rib. This can take time to heal. Recommend splinting with a pillow if able. Try heating pad. *Continue to take medications as directed Ibuprofen 800 mg every 8 hours if needed for pain with food Flexeril 5 mg every 8 hours only if needed for muscle spasm this does cause drowsiness do not drive *Follow up with your primary care provider in 2-3 days and follow up with ortho, urology etc *Return to ER if you should have increasing shortness of breath, increasing pain or any new, worsening or concerning symptoms Prescriptions: New cyclobenzaprine 5 mg tablet 5 mg PO TID PRN (Reason: muscle spasm) Qty: 10 RF: 0 No Action albuterol sulfate 2.5 MG/3 ML solution for nebulization 3 ml INH X1 Qty: 1 RF: 3 beclomethasone dipropionate [Qvar] 80 MCG/PUFF aerosol 1 puff INH BID Qty: 1 RF: 2 azithromycin 250 mg Tablet 250 mg PO DAILY RF: 0 albuterol sulfate [Ventolin HFA] 90 MCG/PUFF HFA aerosol inhaler 1 puff INH Q4HP PRN (Reason: Shortness Of Breath) RF: 0 prednisone 20 mg tablet 20 mg PO BID Qty: 30 RF: 0 Referrals: Mayi Singleton MD [Primary Care Provider] -
--- NOTE | 2019-08-19 22:43 | DI.RAD.S_ITS ---
PROCEDURE: XR RIBS RT MIN 3V W CXR 1V INDICATIONS: pain no injury TECHNIQUE: 2 views of the left ribs were acquired, along with a single view chest. COMPARISON: [facility], , XR CHEST 2V, 05/27/2018, 15:15. FINDINGS: Surgical changes and devices: Postsurgical changes are demonstrated in the lower cervical spine status post ACDF. Bones and chest wall: No displaced rib fracture identified. No suspicious bony lesions. Overlying soft tissues appear unremarkable. Lungs and pleura: No pleural effusions or pneumothorax. Lungs appear clear. Mediastinum: Mediastinal contours appear normal. Heart size is normal. IMPRESSION: 1. No displaced rib fracture identified. 2. No acute cardiopulmonary disease. Dictated by: Bryce Cordon M.D. on 08/20/2019 at 9:15 Approved by: Bryce Cordon M.D. on 08/20/2019 at 9:16
[2019-08-19] MEDS: KETOROLAC 60 MG/2 ML VIAL 30 MG IM (22:51)
[2019-08-19] MEDS: CYCLOBENZAPRINE 10 MG PREPACK 1 BOTTLE MISC (23:42)
[2019-08-19 23:44] VITALS: BP 153/90; PULSE 74; RESP 14; O2SAT 99
== END 2019-08-19 23:45 | disposition home or self-care (01) ==
PROVIDERS: Emergency Provider Emergency Medicine; PCP Family Medicine
DX: J45.909 Unspecified asthma, uncomplicated (principal); M94.0 Chondrocostal junction syndrome [Tietze]
CPT/HCPCS: 71101; 96372; 99282; 99283; J1885